=== PATIENT | female | born 1960 ===

== ENCOUNTER 2023-04-20 14:54 | Outpatient (RCR) | payer OTHER, SELFPAY | END 2023-05-19 23:59 | disposition home or self-care (01) | LOC: MOT 14:54 | PROVIDERS: Visit Provider Nurse Practitioner Family | DX: I89.0 Lymphedema, not elsewhere classified (principal) | CPT/HCPCS: 97110; 97140; 97166 ==

== ENCOUNTER 2023-05-20 06:00 | Outpatient (RCR) | payer OTHER, SELFPAY | END 2023-06-18 23:59 | disposition home or self-care (01) | LOC: MOT 06:00 | PROVIDERS: Visit Provider Nurse Practitioner Family | DX: I97.2 Postmastectomy lymphedema syndrome (principal); I89.0 Lymphedema, not elsewhere classified | CPT/HCPCS: 97140 ==